=== PATIENT | male | born 1960 | race African-American/Black ===

== ENCOUNTER 2018-11-12 23:11 | Emergency (ER) | payer MEDICAID ==
[~2018-11-12] VITALS: Ht 182.9 cm; Wt 102.1 kg
[2018-11-12 23:55] VITALS: BP 115/75
[2018-11-13] MEDS ORDERED: InsuLIN REG 1unit/0.01ml Soln (100units/ml) SC ONE
[2018-11-13] MEDS ORDERED: InsuLIN REG 1unit/0.01ml Soln (100units/ml) ONE (00:02)
== END 2018-11-13 05:20 | disposition left against medical advice (07) ==
LOC: ER 23:14
DX: R73.9 Hyperglycemia, unspecified (principal); Z53.21 Procedure and treatment not carried out due to patient leaving prior to being seen by health care provider
CPT/HCPCS: 82962; J1815

== ENCOUNTER 2020-08-24 11:52 | Emergency (ER) | payer MEDICAID, OTHER ==
[~2020-08-24] VITALS: Ht 188 cm; Wt 104.3 kg
[2020-08-24 12:09] VITALS: BP 158/82
[2020-08-24] MEDS ORDERED: traMADol HCL 50 MG TAB PO ONE (12:15)
== END 2020-08-24 13:51 | disposition left against medical advice (07) ==
LOC: ER 11:52 → EDBD 11:52 → ER 13:51
DX: S16.1XXA Strain of muscle, fascia and tendon at neck level, initial encounter (principal); S39.012A Strain of muscle, fascia and tendon of lower back, initial encounter; S09.90XA Unspecified injury of head, initial encounter; F17.210 Nicotine dependence, cigarettes, uncomplicated; E11.9 Type 2 diabetes mellitus without complications; I10 Essential (primary) hypertension; Z53.29 Procedure and treatment not carried out because of patient's decision for other reasons; V89.2XXA Person injured in unspecified motor-vehicle accident, traffic, initial encounter; Y93.89 Activity, other specified; Y92.410 Unspecified street and highway as the place of occurrence of the external cause; Y99.8 Other external cause status